=== PATIENT | female | born 1985 | race Caucasian/White ===

== ENCOUNTER 2017-09-14 18:50 | Emergency (ER) | payer OTHER ==
[~2017-09-14] VITALS: Ht 160 cm; Wt 78.9 kg
[2017-09-14 21:14] VITALS: BP 120/79
== END 2017-09-14 21:16 | disposition home or self-care (01) ==
LOC: ED 20:40
DX: O22.43 Hemorrhoids in pregnancy, third trimester (principal); Z3A.31 31 weeks gestation of pregnancy
CPT/HCPCS: 99283

== ENCOUNTER 2017-10-29 20:52 | Outpatient (CLI) | payer OTHER | END 2017-10-29 21:20 | disposition home or self-care (01) | LOC: LDOP 20:52 | PROVIDERS: ATTEND Obstetrics & Gynecology | DX: O36.8130 Decreased fetal movements, third trimester, not applicable or unspecified (principal); Z3A.39 39 weeks gestation of pregnancy | CPT/HCPCS: 59025; 99211; G0463 ==

== ENCOUNTER 2017-11-03 09:21 | Inpatient (IN) | payer OTHER ==
[~2017-11-03] VITALS: Ht 160 cm; Wt 80.0 kg
[2017-11-03] MEDS ORDERED: PREN1TAB69 PO (16:58)
[2017-11-17] MEDS ORDERED: OXYTOCIN 30U/ 0.9% NaCL 500ML 500 ML ONE (21:51)
[2017-11-17] MEDS ORDERED: NEWBORN KIT ONE (21:51)
[2017-11-17] MEDS ORDERED: LIDOCAINE 1%, 50ML ONE (21:51)
[2017-11-17] MEDS ORDERED: MISOPROSTOL 25 MCG TABLET ONE (21:51)
[2017-11-17] MEDS ORDERED: MISOPROSTOL 200 MCG TABLET ONE (21:51)
[2017-11-17] MEDS ORDERED: D5%-LACTATED RINGERS 1,000 ML IV SCH (21:56)
[2017-11-17] MEDS ORDERED: OXYTOCIN 30U/ 0.9% NaCL 500ML 500 ML IV ONE (21:56)
[2017-11-17] MEDS ORDERED: OXYTOCIN 30U/ 0.9% NaCL 500ML 500 ML IV PRN (21:56)
[2017-11-17 22:00] VITALS: BP 111/72
[2017-11-17] MEDS ORDERED: CALCIUM CARBONATE 500 MG TAB.CHEW PO PRN (22:00)
[2017-11-17] MEDS ORDERED: MISOPROSTOL 25 MCG TABLET VG PRN (22:00)
[2017-11-17] MEDS ORDERED: FENTANYL PF 100 MCG/2ML IVPush PRN (22:00)
[2017-11-17] MEDS ORDERED: FENTANYL PF 100 MCG/2ML IV PRN (22:00)
[2017-11-17] MEDS ORDERED: SODIUM CITRATE/CITRIC ACID 30 ML UDC PO PRN (22:00)
[2017-11-17] MEDS ORDERED: ONDANSETRON 2MG/ML, 2ML IVPush PRN (22:00)
[2017-11-17] MEDS ORDERED: TERBUTALINE 1 MG/ML, 1ML IVPush PRN (22:00)
[2017-11-17] MEDS ORDERED: METOCLOPRAMIDE 5 MG/ML, 2ML IVPush PRN (22:00)
[2017-11-17] MEDS: LACTATED RINGERS 1,000 ML IV SCH (22:15)
[2017-11-17] MEDS ORDERED: PLEASE ENTER HEIGHT AND WEIGHT MC SCH (22:30)
[2017-11-17 22:53] LABS: BASOPHILS # (AUTO) 0.03 x10^3/uL (0-0.1); BASOPHILS % (AUTO) 0 % (0-1); EOSINOPHILS # (AUTO) 0.01 x10^3/uL (0-0.4); EOSINOPHILS % (AUTO) 0 % (1-7); LYMPHOCYTES # (AUTO) 1.62 x10^3/uL (1-3.4); LYMPHOCYTES % (AUTO) 20 % (22-44); MD NO; MEAN CORPUSCULAR HEMOGLOBIN 30.2 pg (27.0-34.8); MEAN PLATELET VOLUME 8.6 fL (7.4-10.4); MONOCYTES # (AUTO) 0.52 x10^3/uL (0.2-0.8); MONOCYTES % (AUTO) 6 % (2-9); NEUTROPHILS # (AUTO) 5.94 x10^3/uL (1.8-6.8); NEUTROPHILS % (AUTO) 73 % (42-75); PLATELET COUNT 211 x10^3/uL (130-400); RED BLOOD COUNT 4.24 x10^6/uL (3.82-5.3); RED CELL DISTRIBUTION WIDTH 13.6 % (9.6-15.2)
[2017-11-18] MEDS ORDERED: FENTANYL/BUPIV./NS/PF 250 ML EPIDCONT STA (10:51)
[2017-11-18] MEDS ORDERED: FENTANYL PF 500 MCG, BUPIVACAINE/PF 0.5%, 30ML 62.5 ML in SODIUM CHLORIDE 0.9% 177.5 ML EPIDCONT SCH (11:30)
[2017-11-18] MEDS: LACTATED RINGERS 1,000 ML IV SCH ×2 (16:00→16:01)
[2017-11-19] MEDS ORDERED: OXYTOCIN 30U/ 0.9% NaCL 500ML 500 ML ONE (11:36)
[2017-11-19] MEDS: LACTATED RINGERS 1,000 ML IV SCH ×3 (11:39→17:23)
[2017-11-19] MEDS ORDERED: FENTANYL PF 100 MCG/2ML ONE ×3 (14:56→22:41)
[2017-11-19] MEDS ORDERED: BUPIVACAINE 0.25% ONE ×3 (16:10→23:01)
[2017-11-19] MEDS ORDERED: ONDANSETRON 4 MG TABLET ONE (20:38)
[2017-11-19] MEDS ORDERED: SODIUM CITRATE/CITRIC ACID 30 ML UDC ONE (22:43)
[2017-11-19] MEDS ORDERED: METOCLOPRAMIDE 10MG TABLET ONE (22:43)
[2017-11-19] MEDS ORDERED: METOCLOPRAMIDE 5 MG/ML, 2ML ONE (22:44)
[2017-11-19] MEDS ORDERED: WATER-INJECTION,STERILE 10 ML IV ONE (23:00)
[2017-11-19] MEDS ORDERED: LIDOCAINE-MPF 2% ,5ML ONE (23:00)
[2017-11-19] MEDS ORDERED: OXYTOCIN 10 UNITS/ML, 1ML ONE (23:00)
[2017-11-19] MEDS ORDERED: BUPIVACAINE/PF 0.25% ONE (23:00)
[2017-11-19] MEDS ORDERED: CEFAZOLIN PMX 1GM/50ML 50 ML IVPB ONE (23:00)
[2017-11-19] MEDS ORDERED: CEFAZOLIN 1,000 MG ONE (23:00)
[2017-11-19] MEDS ORDERED: EPHEDRINE 50 MG/ML, 1ML ONE (23:00)
[2017-11-19] MEDS ORDERED: PHENYLEPHRINE 10 MG/ML ONE (23:00)
[2017-11-19] MEDS ORDERED: morphine SULFATE/PF 0.5 MG/ML, 10ML ONE (23:16)
[2017-11-20] MEDS: LACTATED RINGERS 1,000 ML IV SCH ×4 (00:01→20:01)
[2017-11-20] MEDS ORDERED: LACTATED RINGERS 1,000 ML IV SCH (00:01)
[2017-11-20] MEDS: OXYTOCIN 30U/ 0.9% NaCL 500ML 500 ML IV SCH ×3 (00:01→20:01)
[2017-11-20] MEDS ORDERED: OXYcodone/APAP 5/325MG TABLET PO PRN (00:30)
[2017-11-20] MEDS ORDERED: BISACODYL 10 MG SUPP PR PRN (00:30)
[2017-11-20] MEDS ORDERED: IBUPROFEN 600 MG TABLET PO PRN (00:30)
[2017-11-20] MEDS ORDERED: SIMETHICONE 80 MG CHEW TAB PO PRN (00:30)
[2017-11-20] MEDS ORDERED: MISOPROSTOL 200 MCG TABLET PR PRN (00:30)
[2017-11-20] MEDS ORDERED: ONDANSETRON 2MG/ML, 2ML IV PRN (00:30)
[2017-11-20] MEDS ORDERED: GLYCERIN ADULT SUPP PR PRN (00:30)
[2017-11-20] MEDS ORDERED: METOCLOPRAMIDE 5 MG/ML, 2ML IV PRN (00:30)
[2017-11-20] MEDS ORDERED: ACETAMINOPHEN 325 MG TABLET PO PRN ×2 (00:30)
[2017-11-20] MEDS ORDERED: DIPH,PERTUSS(ACELL),TET VAC/PF NC IM-VACC PRN (00:30)
[2017-11-20] MEDS ORDERED: CALCIUM CARBONATE 500 MG TAB.CHEW PO PRN (00:30)
[2017-11-20] MEDS ORDERED: CARBOPROST TROMETHAMINE 250 MCG/ML, 1ML IM PRN (00:30)
[2017-11-20] MEDS ORDERED: METHYLERGONOVINE 0.2 MG/ML IM PRN (00:30)
[2017-11-20] MEDS ORDERED: MEASLES,MUMPS&RUBELLA VACC/PF 0.5 ML SQ-VACC PRN (00:30)
[2017-11-20] MEDS ORDERED: KETOROLAC 30 MG/1 ML ONE (00:34)
[2017-11-20] MEDS: KETOROLAC 30 MG/1 ML IV SCH ×5 (00:35→23:59)
[2017-11-20 01:05] VITALS: BP 101/65
[2017-11-20 04:30] VITALS: BP 103/64
[2017-11-20 07:51] LABS: MEAN CORPUSCULAR VOLUME 88.4 fL (80-100); MEAN PLATELET VOLUME 8.5 fL (7.4-10.4); PLATELET COUNT 166 x10^3/uL (130-400); RED BLOOD COUNT 3.57 x10^6/uL (3.82-5.3); RED CELL DISTRIBUTION WIDTH 13.6 % (9.6-15.2)
[2017-11-20 08:15] VITALS: BP 94/58
[2017-11-20 09:00] LABS: BASOPHILS # (AUTO) 0.04 x10^3/uL (0-0.1); BASOPHILS % (AUTO) 0 % (0-1); EOSINOPHILS # (AUTO) 0.01 x10^3/uL (0-0.4); EOSINOPHILS % (AUTO) 0 % (1-7); LYMPHOCYTES # (AUTO) 1.46 x10^3/uL (1-3.4); LYMPHOCYTES % (AUTO) 11 % (22-44); MD SCAN; MONOCYTES # (AUTO) 0.66 x10^3/uL (0.2-0.8); MONOCYTES % (AUTO) 5 % (2-9); NEUTROPHILS % (AUTO) 83 % (42-75)
[2017-11-20] MEDS: DOCUSATE 100 MG CAPSULE PO PRN ×2 (12:04→23:59)
[2017-11-20] MEDS: PRENATAL VIT/IRON/FA 1 EACH TABLET PO SCH (12:04)
[2017-11-20 12:30] VITALS: BP 97/64
[2017-11-20 17:41] VITALS: BP 99/65
[2017-11-20] MEDS: OXYcodone/APAP 5/325MG TABLET PO PRN ×2 (18:20→23:59)
[2017-11-20 21:10] VITALS: BP 108/76
[2017-11-21] MEDS: LACTATED RINGERS 1,000 ML IV SCH (01:14)
[2017-11-21] MEDS: OXYTOCIN 30U/ 0.9% NaCL 500ML 500 ML IV SCH (01:15)
[2017-11-21] MEDS: OXYcodone/APAP 5/325MG TABLET PO PRN ×3 (06:01→12:07)
[2017-11-21] MEDS: KETOROLAC 30 MG/1 ML IV SCH (06:02)
[2017-11-21 07:45] VITALS: BP 99/64
[2017-11-21] MEDS: DOCUSATE 100 MG CAPSULE PO PRN (09:28)
[2017-11-21] MEDS: PRENATAL VIT/IRON/FA 1 EACH TABLET PO SCH (09:28)
[2017-11-21] MEDS ORDERED: IBUP-1222 PO (10:07)
[2017-11-21] MEDS ORDERED: OXYC-302 PO (10:07)
[2017-11-21] MEDS ORDERED: DOCU-131 PO (10:07)
== END 2017-11-21 12:25 | disposition home or self-care (01) | DRG 765 ==
LOC: LDIP 11-17 21:35 → 2NW 11-20 01:02
PROVIDERS: ADMIT Obstetrics & Gynecology; ATTEND Obstetrics & Gynecology
PROC: 3E0P7VZ Introduction of Hormone into Female Reproductive, Via Natural or Artificial Opening (ICD-10-PCS; 2017-11-17)
PROC: 10H07YZ Insertion of Other Device into Products of Conception, Via Natural or Artificial Opening (ICD-10-PCS; 2017-11-17)
PROC: 0U7C7ZZ Dilation of Cervix, Via Natural or Artificial Opening (ICD-10-PCS; 2017-11-17)
PROC: 10D00Z1 Extraction of Products of Conception, Low, Open Approach (ICD-10-PCS; principal; 2017-11-20)
DX: O24.420 Gestational diabetes mellitus in childbirth, diet controlled (principal); O99.354 Diseases of the nervous system complicating childbirth; O76 Abnormality in fetal heart rate and rhythm complicating labor and delivery; O77.0 Labor and delivery complicated by meconium in amniotic fluid; O99.52 Diseases of the respiratory system complicating childbirth; J45.909 Unspecified asthma, uncomplicated; Z80.41 Family history of malignant neoplasm of ovary; Z37.0 Single live birth; Z83.3 Family history of diabetes mellitus; Z3A.39 39 weeks gestation of pregnancy; Z81.8 Family history of other mental and behavioral disorders; O62.1 Secondary uterine inertia; G43.909 Migraine, unspecified, not intractable, without status migrainosus
CPT/HCPCS: 36415; J7121; 82803; 82962; 85025; 86850; 86900; G0378; J0690; J1885; J2274; J3010; J3490; J2370; J2590; J7120

== ENCOUNTER 2017-11-03 16:44 | Outpatient (CLI) | payer OTHER ==
[~2017-11-03] VITALS: Ht 160 cm; Wt 80.0 kg
[2017-11-03] MEDS ORDERED: TERBUTALINE 1 MG/ML, 1ML ONE (16:52)
[2017-11-03] MEDS ORDERED: PREN1TAB69 PO (16:58)
[2017-11-03] MEDS ORDERED: TERBUTALINE 1 MG/ML, 1ML IV ONE (17:00)
[2017-11-03] MEDS ORDERED: PLEASE ENTER HEIGHT AND WEIGHT MC SCH (17:00)
[2017-11-03 17:40] VITALS: BP 117/59
[2017-11-03] MEDS ORDERED: SODIUM CHLORIDE FLUSH 10ML SYR IVF SCH (21:00)
== END 2017-11-03 18:30 | disposition home or self-care (01) ==
LOC: LDOP 16:44
PROVIDERS: ATTEND Obstetrics & Gynecology
DX: O26.893 Other specified pregnancy related conditions, third trimester (principal); O24.419 Gestational diabetes mellitus in pregnancy, unspecified control; Z3A.37 37 weeks gestation of pregnancy
CPT/HCPCS: 59025; 59412; 76815; 99211; J3105; G0463

== ENCOUNTER → 2019-05-02 | Outpatient (CLI) | payer OTHER ==
[~2019-05-02] MED LIST: DOCU-131 PO; IBUP-1222 PO; OXYC-302 PO; PREN1TAB69 PO
[2019-05-02 12:25] LABS: BASOPHILS # (AUTO) 0.02 x10^3/uL (0-0.1); BASOPHILS % (AUTO) 0 % (0-1); EOSINOPHILS # (AUTO) 0.08 x10^3/uL (0-0.4); EOSINOPHILS % (AUTO) 1 % (1-7); LYMPHOCYTES # (AUTO) 1.45 x10^3/uL (1-3.4); LYMPHOCYTES % (AUTO) 24 % (22-44); MD NO; MEAN CORPUSCULAR HEMOGLOBIN 29.8 pg (27.0-34.8); MEAN CORPUSCULAR HGB CONC 33.7 g/dL (32.4-35.8); MEAN CORPUSCULAR VOLUME 88.3 fL (80-100); MEAN PLATELET VOLUME 8.1 fL (7.4-10.4); MONOCYTES # (AUTO) 0.44 x10^3/uL (0.2-0.8); MONOCYTES % (AUTO) 7 % (2-9); NEUTROPHILS # (AUTO) 4.03 x10^3/uL (1.8-6.8); NEUTROPHILS % (AUTO) 67 % (42-75); PLATELET COUNT 244 x10^3/uL (130-400); RED BLOOD COUNT 4.87 x10^6/uL (3.82-5.3); RED CELL DISTRIBUTION WIDTH 13.1 % (9.6-15.2)
[2019-05-02 12:58] LABS: CHLORIDE 110 mmol/L (98-107)
[2019-05-02 13:13] LABS: ALANINE AMINOTRANSFERASE 23 U/L (12-78); ALBUMIN 3.7 g/dL (3.4-5.0); ALKALINE PHOSPHATASE 54 U/L (45-117); ANION GAP 7 mmol/L (5-15); BILIRUBIN,TOTAL 0.5 mg/dL (0.2-1.0); CALCIUM 8.6 mg/dL (8.5-10.1); CHOLESTEROL, TOTAL 197 mg/dL (140-239); CREATININE 0.87 mg/dL (0.55-1.02); HDL CHOL % 25 % (28-40); HDL CHOLESTEROL (DIRECT) 49 mg/dL (40-60); LDL CHOLESTEROL,CALCULATED 123 mg/dL (54-169); LDL/HDL RATIO 2.5 (0.5-3.0); TOTAL PROTEIN 7.4 g/dL (6.4-8.2); TRIGLYCERIDES 123 mg/dL (50-200); VLDL CHOLESTEROL 25 mg/dL (0-25)
== END | disposition home or self-care (01) ==
LOC: LAB 11:55
PROVIDERS: ATTEND Nurse Practitioner Family
DX: Z00.00 Encounter for general adult medical examination without abnormal findings (principal); O24.429 Gestational diabetes mellitus in childbirth, unspecified control; G43.109 Migraine with aura, not intractable, without status migrainosus
CPT/HCPCS: 36415; 80053; 80061; 83036; 85025

== ENCOUNTER 2019-10-20 04:51 | Emergency (ER) | payer OTHER ==
[~2019-10-20] VITALS: Ht 160 cm; Wt 72.0 kg
--- NOTE | 2019-10-20 04:54 | NUR ---
PT AMBULATORY TO BATHROOM, STEADY GAIT.
--- NOTE | 2019-10-20 05:13 | NUR ---
THIS PT NOTED AN INCREASE IN URINATION FREQUENCY WELL PAINFUL URINATION. PT DENIES CURRENT MENSTRATION, URINE CAME BACK BLOOD TINGED. PT HAS A HX OF UTIs, BUT DENIES BLOODY URINE IN THE PAST. CURRENTLY RESTING IN BED, NO SIGNS OF ACUTE DISTRESS. CONNECTED TO BP AND O2 MONITORS, CALL LIGHT IN REACH, BEDRAILS UP X2. ALL NEEDS MET AT THIS TIME.
[2019-10-20 05:27] LABS: MICROSCOPIC INDICATED
[2019-10-20 05:48] LABS: BASOPHILS # (AUTO) 0.01 x10^3/uL (0-0.1); BASOPHILS % (AUTO) 0 % (0-1); EOSINOPHILS % (AUTO) 2 % (1-7); LYMPHOCYTES # (AUTO) 1.62 x10^3/uL (1-3.4); LYMPHOCYTES % (AUTO) 15 % (22-44); MD NO; MEAN CORPUSCULAR HEMOGLOBIN 29.6 pg (27.0-34.8); MEAN CORPUSCULAR HGB CONC 33.6 g/dL (32.4-35.8); MEAN PLATELET VOLUME 9.1 fL (7.4-10.4); MONOCYTES % (AUTO) 7 % (2-9); NEUTROPHILS # (AUTO) 8.11 x10^3/uL (1.8-6.8); NEUTROPHILS % (AUTO) 76 % (42-75); PLATELET COUNT 195 x10^3/uL (130-400); RED CELL DISTRIBUTION WIDTH 12.6 % (9.6-15.2)
[2019-10-20] MEDS ORDERED: SODIUM CHLORIDE 0.9% 1,000ML IVBOLUS ONE (06:00)
[2019-10-20] MEDS ORDERED: CEFTRIAXONE 1,000 MG IM ONE (06:00)
[2019-10-20] MEDS ORDERED: CEFTRIAXONE PMX 1GM/50ML 50 ML IV ONE (06:00)
[2019-10-20] MEDS ORDERED: CEFTRIAXONE PMX 1GM/50ML 50 ML ONE (06:00)
[2019-10-20 06:01] LABS: ALANINE AMINOTRANSFERASE 23 U/L (12-78); ALBUMIN 3.8 g/dL (3.4-5.0); ANION GAP 8 mmol/L (5-15); CALCIUM 8.9 mg/dL (8.5-10.1); CHLORIDE 105 mmol/L (98-107); CREATININE 0.78 mg/dL (0.55-1.02)
[2019-10-20 06:04] LABS: ALKALINE PHOSPHATASE 47 U/L (45-117); BILIRUBIN,TOTAL 0.5 mg/dL (0.2-1.0); TOTAL PROTEIN 7.4 g/dL (6.4-8.2)
--- NOTE | 2019-10-20 06:13 | NUR ---
US TO BEDSIDE.
[2019-10-20 06:50] VITALS: BP 94/58
--- NOTE | 2019-10-20 06:51 | NUR ---
RECEIVED REPORT FROM PAVAN PEÑA LAYING ON GURNEY AWAKE & COMFORTABLE, TALKING ON CELLPHONE, RESPONDS APPROP TO STAFF, NAD & STATES "PAIN IS SO MUCH BETTER AFTER THE BOLUS", COMFORT MEASURES PROVIDED, CALL LIGHT WITHIN REACH.
--- NOTE | 2019-10-20 08:23 | NUR ---
Patient given discharge instructions and Rx, they have confirmed that they understand the instructions. Patient ambulatory with steady gait.
== END 2019-10-20 08:24 | disposition home or self-care (01) ==
LOC: ED 07:03
DX: N10 Acute pyelonephritis (principal); R31.9 Hematuria, unspecified
CPT/HCPCS: 36415; 76770; 80053; 81001; 83690; 84703; 85025; 87077; 87086; 96365; 99284; J0696; J7030; 87186

== ENCOUNTER 2020-09-13 05:33 | Outpatient (CLI) | payer OTHER ==
[~2020-09-13] VITALS: Ht 160 cm; Wt 80.9 kg
[~2020-09-13 05:33] MED LIST changes: -OXYC-302 PO; +OXYC1TAB14 PO
== END 2020-09-13 06:58 | disposition home or self-care (01) ==
LOC: LDOP 05:33
PROVIDERS: ATTEND Obstetrics & Gynecology
DX: O09.93 Supervision of high risk pregnancy, unspecified, third trimester (principal); O42.913 Preterm premature rupture of membranes, unspecified as to length of time between rupture and onset of labor, third trimester; Z3A.36 36 weeks gestation of pregnancy
CPT/HCPCS: 59025; 84112

== ENCOUNTER 2020-09-18 10:08 | Inpatient (IN) | payer OTHER ==
[~2020-09-18] VITALS: Ht 160 cm; Wt 80.9 kg
[2020-09-18] MEDS ORDERED: TERBUTALINE 1 MG/ML, 1ML IVPush PRN (10:30)
[2020-09-18] MEDS ORDERED: CALCIUM CARBONATE 500 MG TAB.CHEW PO PRN (10:30)
[2020-09-18] MEDS ORDERED: TERBUTALINE 1 MG/ML, 1ML SQ PRN (10:30)
[2020-09-18] MEDS ORDERED: ONDANSETRON 2MG/ML, 2ML IVPush PRN (10:30)
[2020-09-18] MEDS ORDERED: D5%-LACTATED RINGERS 1,000 ML IV SCH (10:30)
[2020-09-18] MEDS ORDERED: OXYTOCIN 30U/ 0.9% NaCL 500ML 500 ML IV ONE (10:30)
[2020-09-18] MEDS: LACTATED RINGERS 1,000 ML IV SCH ×2 (11:10→13:00)
[2020-09-18] MEDS: LACTATED RINGERS 1,000 ML IVBOLUS PRN ×2 (11:15→12:00)
[2020-09-18] MEDS ORDERED: FENTANYL PF 100 MCG/2ML ONE (11:15)
[2020-09-18 11:34] LABS: BASOPHILS % (AUTO) 0 % (0-1); EOSINOPHILS % (AUTO) 1 % (1-7); LYMPHOCYTES % (AUTO) 10 % (22-44); MEAN CORPUSCULAR HEMOGLOBIN 29.6 pg (27.0-34.8); MEAN CORPUSCULAR HGB CONC 33.8 g/dL (32.4-35.8); MEAN PLATELET VOLUME 7.9 fL (7.4-10.4); MONOCYTES % (AUTO) 6 % (2-9); NEUTROPHILS % (AUTO) 83 % (42-75); PLATELET COUNT 221 x10^3/uL (130-400); RED BLOOD COUNT 4.33 x10^6/uL (3.82-5.3); RED CELL DISTRIBUTION WIDTH 13.6 % (9.6-15.2)
[2020-09-18] MEDS ORDERED: FENTANYL PF 100 MCG/2ML IVPush PRN (12:00)
[2020-09-18] MEDS ORDERED: FENTANYL PF 100 MCG/2ML IV PRN (12:00)
[2020-09-18] MEDS ORDERED: FENTANYL/BUPIV./NS/PF 250 ML EPIDCONT ONE (12:01)
[2020-09-18] MEDS ORDERED: FENTANYL/BUPIV./NS/PF 250 ML EPIDCONT SCH (12:15)
[2020-09-18] MEDS ORDERED: MISOPROSTOL 200 MCG TABLET ONE (13:21)
[2020-09-18] MEDS ORDERED: LIDOCAINE 1%, 20ML ONE (13:21)
[2020-09-18] MEDS ORDERED: NEWBORN KIT ONE (13:21)
[2020-09-18] MEDS ORDERED: OXYTOCIN 30U/ 0.9% NaCL 500ML 500 ML IV PRN (14:00)
[2020-09-18] MEDS ORDERED: EPHEDRINE 50 MG/ML, 1ML IVPush PRN (14:30)
[2020-09-18] MEDS ORDERED: PENICILLIN GK 5,000,000 UNITS in DEXTROSE 5% 100 ML IVPB ONE (14:30)
[2020-09-18] MEDS ORDERED: LACTATED RINGERS 1,000 ML IV SCH (14:30)
[2020-09-18] MEDS ORDERED: PENICILLIN GK 2,500,000 UNITS in DEXTROSE 5% 100 ML IVPB SCH (15:00)
[2020-09-18] MEDS ORDERED: SIMETHICONE 80 MG CHEW TAB PO PRN (20:00)
[2020-09-18] MEDS: OXYTOCIN 30U/ 0.9% NaCL 500ML 500 ML IV SCH (20:00)
[2020-09-18] MEDS ORDERED: ACETAMINOPHEN 325 MG TABLET PO PRN (20:00)
[2020-09-18] MEDS ORDERED: MISOPROSTOL 200 MCG TABLET PR PRN (20:00)
[2020-09-18] MEDS ORDERED: OXYcodone IR 5MG TABLET PO PRN (20:00)
[2020-09-18] MEDS ORDERED: ONDANSETRON 2MG/ML, 2ML IV PRN (20:00)
[2020-09-18 21:10] VITALS: BP 113/71
[2020-09-18] MEDS: DOCUSATE 100 MG CAPSULE PO PRN (22:21)
[2020-09-18] MEDS: IBUPROFEN 600 MG TABLET PO PRN (22:21)
[2020-09-19 01:30] VITALS: BP 109/70
[2020-09-19 03:11] LABS: BASOPHILS % (AUTO) 0 % (0-1); EOSINOPHILS % (AUTO) 1 % (1-7); LYMPHOCYTES % (AUTO) 12 % (22-44); MEAN CORPUSCULAR HEMOGLOBIN 30.2 pg (27.0-34.8); MEAN CORPUSCULAR HGB CONC 34.9 g/dL (32.4-35.8); MEAN PLATELET VOLUME 8.1 fL (7.4-10.4); MONOCYTES % (AUTO) 7 % (2-9); NEUTROPHILS % (AUTO) 81 % (42-75); PLATELET COUNT 201 x10^3/uL (130-400); RED BLOOD COUNT 3.39 x10^6/uL (3.82-5.3); RED CELL DISTRIBUTION WIDTH 13.9 % (9.6-15.2)
[2020-09-19] MEDS: IBUPROFEN 600 MG TABLET PO PRN ×3 (04:22→17:47)
[2020-09-19 04:31] VITALS: BP 99/65
[2020-09-19] MEDS: OXYTOCIN 30U/ 0.9% NaCL 500ML 500 ML IV SCH ×2 (06:03→16:00)
[2020-09-19 08:00] VITALS: BP 96/66
[2020-09-19] MEDS: DOCUSATE 100 MG CAPSULE PO PRN (08:02)
[2020-09-19] MEDS: OXYcodone/APAP 5/325MG TABLET PO PRN ×3 (08:03→19:21)
[2020-09-19] MEDS ORDERED: PRENATAL VIT/IRON/FA 1 EACH TABLET PO SCH (09:00)
[2020-09-19 13:45] VITALS: BP 101/64
[2020-09-19 17:30] VITALS: BP 105/70
[2020-09-19] MEDS ORDERED: IBUP-1222 PO (19:14)
[2020-09-19] MEDS ORDERED: OXYC5TAB98 PO (19:14)
== END 2020-09-19 20:00 | disposition home or self-care (01) | DRG 807 ==
LOC: LDOP 10:08 → LDIP 10:44 → 2NW 21:29
PROVIDERS: ADMIT Obstetrics & Gynecology; ATTEND Obstetrics & Gynecology
PROC: 10E0XZZ Delivery of Products of Conception, External Approach (ICD-10-PCS; principal; 2020-09-18)
PROC: 0HQ9XZZ Repair Perineum Skin, External Approach (ICD-10-PCS; 2020-09-18)
DX: O34.211 Maternal care for low transverse scar from previous cesarean delivery (principal); Z37.0 Single live birth; O70.0 First degree perineal laceration during delivery; Z20.822 Contact with and (suspected) exposure to COVID-19; Z68.37 Body mass index [BMI] 37.0-37.9, adult
CPT/HCPCS: 36415; 85025; 86592; 86850; 86900; 87635; G0378; J2405; J2540; J3010; J2590; J7120